=== PATIENT | female | born 1955 | race Caucasian/White ===

== ENCOUNTER → 2018-09-22 10:23 | Outpatient (CLI) | payer OTHER, SELFPAY ==
--- NOTE | 2018-09-22 10:25 | DI.MG.S_ITS ---
BILATERAL DIGITAL SCREENING MAMMOGRAM 3D/2D WITH CAD: 09/22/2018 CLINICAL: Routine screening. Comparison is made to exams dated: 06/02/2017 mammogram, 01/20/2016 mammogram, and 08/13/2014 mammogram - [facility]. There are scattered fibroglandular elements in both breasts. Current study was also evaluated with a Computer Aided Detection (CAD) system. No significant masses, calcifications, or other findings are seen in either breast. There has been no significant interval change. IMPRESSION: NEGATIVE There is no mammographic evidence of malignancy. A 1 year screening mammogram is recommended. This exam was interpreted at Station ID: [id number]. NOTE: For mammograms, a report in lay terms will be sent to the patient. Approximately 15% of breast malignancies will not be visualized mammographically. In the management of a palpable breast mass, a negative mammogram must not discourage biopsy of a clinically suspicious lesion. Electronically Signed By: Enid johnson/cele:09/22/2018 11:14:52 letter sent: Normal Exam ACR BI-RADS Category 1: Negative 3341F
== END ==
PROVIDERS: PCP Family Medicine; Visit Provider Family Medicine
DX: Z12.31 Encounter for screening mammogram for malignant neoplasm of breast (principal)
CPT/HCPCS: 77063; 77067

== ENCOUNTER → 2018-11-14 13:11 | Outpatient (CLI) | payer OTHER, SELFPAY | PROVIDERS: PCP Family Medicine; Visit Provider Internal Medicine Endocrinology, Diabetes & Metabolism | DX: M81.0 Age-related osteoporosis without current pathological fracture (principal); Z78.0 Asymptomatic menopausal state; E21.3 Hyperparathyroidism, unspecified; Z87.891 Personal history of nicotine dependence | CPT/HCPCS: 77080; 77081 ==

== ENCOUNTER → 2019-09-20 07:22 | Outpatient (CLI) | payer OTHER, SELFPAY ==
[2019-09-20 09:16] LABS: Cholesterol 208 mg/dL (140-199); Glucose 94 mg/dL (80-110); HDL Cholesterol 82 mg/dL (40-60); LDL Cholesterol Calculated 116 mg/dL (<100); Triglycerides 50 mg/dL (35-150)
== END ==
PROVIDERS: PCP Family Medicine; Visit Provider Family Medicine
DX: Z13.1 Encounter for screening for diabetes mellitus (principal); Z13.220 Encounter for screening for lipoid disorders
CPT/HCPCS: 36415; 80061; 82947

== ENCOUNTER 2019-10-08 11:03 | Day surgery (SDC) | payer OTHER, SELFPAY ==
[2019-10-08 11:50] VITALS: BP 130/81; PULSE 63; RESP 15; TEMP 36.3; O2SAT 100
[2019-10-08] MEDS: PROPARACAINE 0.5% OPHTH SOL 2 DROPS EYE-OP (12:05)
[2019-10-08] MEDS: CATARACT EYE COMPOUND (10 DROPS/SYRINGE) 3 DROPS EYE-OP (12:05)
--- NOTE | 2019-10-08 12:13 | PM.PREOP ---
Pre-operative Note Interval Note History & Physical reviewed/Exam performed by Physician: No Changes to H&P: No
--- NOTE | 2019-10-08 12:13 | PM.OP.1 ---
Operative Date/Time/Diagnoses Pre-op diagnosis: Nuclear Cataract Left eye Post-op diagnosis: same Procedure & Clinicians Surgeon: Mac Rudd Anesthesia Type: MAC +/- and Sedation Operative Notes Procedure in detail: Patient brought to the operating suite. Tetracaine drops placed in the left eye. Patient was prepped and draped in sterile manner. Wire lid speculum was placed in the eye. Betadine drops were placed on the eye. This was irrigated. Lidocaine jelly was placed on the eye. A paracentesis port was created with a side-port blade. 0.1 mL 1% preservative free lidocaine was injected into the anterior chamber. The anterior chamber was deepened with viscoelastic. 2.6 mm keratome was used to create a temporal clear corneal incision. Cystotome and Utrata forceps were used to create continuous tear capsulorrhexis. Balanced salt solution was used to hydro dissect the nucleus. The phacoemulsification handpiece was inserted and the nucleus was removed using the stop and chop technique. The irrigation aspiration handpiece was inserted and the remaining cortex was removed. Anterior chamber was deepened with viscoelastic. An Johnson ZCB00 intraocular lens with a power of 12.5 was injected into the capsular bag. Irrigation aspiration handpiece was inserted and the remaining viscoelastic was removed. Incision was hydrated with balanced salt solution and found to be leak free with pressure with Weck-Traci sponges. 0.1 mL Vigamox injected anterior chamber. 0.3 mL Kenalog 10 mg was injected subconjunctivally. Lid speculum was removed. The patient left the operating room in excellent condition. Complications: none Post-operative Condition: stable Disposition: same day surgery
[2019-10-08] MEDS: PHENYLEPHRINE/LIDOCAINE VIAL (OR) 0.2 ML EYE-OP (12:29)
[2019-10-08] MEDS: MOXIFLOXACIN INJ 5 MG/ML VIAL EYE-OP (12:29)
[2019-10-08] MEDS: TRIAMCINOLONE 50 MG/5 ML VIAL INJ (12:29)
[2019-10-08] MEDS: CHONDROIDTIN/SOD HYALURONATE 1.05 ML SYRINGE INTRAOCULA (12:29)
[2019-10-08] MEDS: BALANCED SALT IRRIG SOLN NO.2 500 ML, EPINEPHrine 1 MG IRR (12:30)
[2019-10-08] MEDS: LIDOCAINE JELLY 2% 5 ML 1 APPLIC TOP (12:30)
[2019-10-08] MEDS: TETRACAINE 0.5% OPHTH DROPS 4 ML 2 DROPS EYE-OP (12:30)
[2019-10-08 12:45] VITALS: BP 140/74; PULSE 64; RESP 15; TEMP 36.4; O2SAT 98
== END 2019-10-08 13:00 | disposition home or self-care (01) ==
PROVIDERS: Family Provider Family Medicine; PCP Family Medicine; Visit Provider Ophthalmology
PROC: (CPT 66984; principal; 2019-10-08 12:45)
DX: H25.12 Age-related nuclear cataract, left eye (principal)
CPT/HCPCS: 66984; J0171; J2250; J3301

== ENCOUNTER 2019-10-22 08:02 | Day surgery (SDC) | payer OTHER, SELFPAY ==
[2019-10-22 08:49] VITALS: BP 137/84; PULSE 86; RESP 15; TEMP 36.2; O2SAT 100; BMI 19.0
[2019-10-22] MEDS: PROPARACAINE 0.5% OPHTH SOL 2 DROPS EYE-OP (08:59)
[2019-10-22] MEDS: CATARACT EYE COMPOUND (10 DROPS/SYRINGE) 3 DROPS EYE-OP (09:00)
--- NOTE | 2019-10-22 09:23 | PM.PREOP ---
Pre-operative Note Interval Note History & Physical reviewed/Exam performed by Physician: No Changes to H&P: No
--- NOTE | 2019-10-22 09:23 | PM.OP.1 ---
Operative Date/Time/Diagnoses Pre-op diagnosis: Nuclear cataract right eye Procedure & Clinicians Procedure: Cataract Surgery Same procedure as scheduled: Yes Surgeon: Mac Rudd Anesthesia Type: MAC +/- and Sedation Operative Notes Procedure in detail: Patient brought to the operating suite. Tetracaine drops placed in the right eye. Patient was prepped and draped in sterile manner. Wire lid speculum was placed in the eye. Betadine drops were placed on the eye. This was irrigated. Lidocaine jelly was placed on the eye. A paracentesis port was created with a side-port blade. 0.1 mL 1% preservative free lidocaine was injected into the anterior chamber. The anterior chamber was deepened with viscoelastic. 2.6 mm keratome was used to create a temporal clear corneal incision. Cystotome and Utrata forceps were used to create continuous tear capsulorrhexis. Balanced salt solution was used to hydro dissect the nucleus. The phacoemulsification handpiece was inserted and the nucleus was removed using the stop and chop technique. The irrigation aspiration handpiece was inserted and the remaining cortex was removed. Anterior chamber was deepened with viscoelastic. An Johnson ZCB00 intraocular lens with a power of 14.0 was injected into the capsular bag. Irrigation aspiration handpiece was inserted and the remaining viscoelastic was removed. Incision was hydrated with balanced salt solution and found to be leak free with pressure with Weck-Traci sponges. 0.1 mL Vigamox injected anterior chamber. 0.3 mL Kenalog 10 mg was injected subconjunctivally. Lid speculum was removed. The patient left the operating room in excellent condition. Complications: none Post-operative Condition: stable Disposition: same day surgery
[2019-10-22] MEDS: MOXIFLOXACIN INJ 5 MG/ML VIAL EYE-OP (09:34)
[2019-10-22] MEDS: TRIAMCINOLONE 50 MG/5 ML VIAL INJ (09:35)
[2019-10-22] MEDS: BALANCED SALT IRRIG SOLN NO.2 500 ML, EPINEPHrine 1 MG IRR (09:35)
[2019-10-22] MEDS: LIDOCAINE JELLY 2% 5 ML 1 APPLIC TOP (09:35)
[2019-10-22] MEDS: PHENYLEPHRINE/LIDOCAINE VIAL (OR) 0.2 ML EYE-OP (09:35)
[2019-10-22] MEDS: TETRACAINE 0.5% OPHTH DROPS 4 ML 2 DROPS EYE-OP (09:36)
[2019-10-22] MEDS: CHONDROIDTIN/SOD HYALURONATE 1.05 ML SYRINGE INTRAOCULA (09:36)
[2019-10-22 09:54] VITALS: BP 131/73; PULSE 70; RESP 16; TEMP 36.9; O2SAT 97
== END 2019-10-22 09:55 | disposition home or self-care (01) ==
PROVIDERS: PCP Family Medicine; Visit Provider Ophthalmology
PROC: (CPT 66984; principal; 2019-10-22 09:45)
DX: H25.11 Age-related nuclear cataract, right eye (principal)
CPT/HCPCS: 66984; J0171; J2250; J3010; J3301

== ENCOUNTER → 2020-02-14 14:19 | Outpatient (CLI) | payer OTHER, SELFPAY ==
[2020-02-15 08:39] LABS: Calcium 8.9 mg/dL (8.7-10.3); Parathyroid Hormone, Intact 30 pg/mL (15-65)
== END ==
PROVIDERS: PCP Family Medicine; Referring Provider Internal Medicine Endocrinology, Diabetes & Metabolism; Visit Provider Internal Medicine Endocrinology, Diabetes & Metabolism
DX: E21.3 Hyperparathyroidism, unspecified (principal)
CPT/HCPCS: 36415; 82310; 83970

== ENCOUNTER → 2020-04-17 15:04 | Outpatient (CLI) | payer OTHER, SELFPAY | PROVIDERS: PCP Family Medicine; Referring Provider Internal Medicine Endocrinology, Diabetes & Metabolism; Visit Provider Internal Medicine Endocrinology, Diabetes & Metabolism | DX: M81.0 Age-related osteoporosis without current pathological fracture (principal); Z78.0 Asymptomatic menopausal state; E21.3 Hyperparathyroidism, unspecified; Z87.891 Personal history of nicotine dependence | CPT/HCPCS: 77080 ==

== ENCOUNTER → 2020-08-04 15:05 | Outpatient (CLI) | payer OTHER, SELFPAY ==
--- NOTE | 2020-08-04 | DI.MG.S_ITS ---
BILATERAL DIGITAL SCREENING MAMMOGRAM 3D/2D WITH CAD: 08/04/2020 CLINICAL: Routine screening. Comparison is made to exams dated: 09/22/2018 mammogram, 06/02/2017 mammogram, and 01/20/2016 mammogram - [facility]. There are scattered fibroglandular elements in both breasts. Current study was also evaluated with a Computer Aided Detection (CAD) system. No significant masses, calcifications, or other findings are seen in either breast. There has been no significant interval change. IMPRESSION: NEGATIVE There is no mammographic evidence of malignancy. A 1 year screening mammogram is recommended. This exam was interpreted at Station ID: [id number]. NOTE: For mammograms, a report in lay terms will be sent to the patient. Approximately 15% of breast malignancies will not be visualized mammographically. In the management of a palpable breast mass, a negative mammogram must not discourage biopsy of a clinically suspicious lesion. Electronically Signed By: Doug pagan/cele:08/04/2020 17:11:27 letter sent: Normal Exam ACR BI-RADS Category 1: Negative 3341F
== END ==
PROVIDERS: PCP Family Medicine; Referring Provider Family Medicine; Visit Provider Family Medicine
DX: Z12.31 Encounter for screening mammogram for malignant neoplasm of breast (principal)
CPT/HCPCS: 77063; 77067

== ENCOUNTER 2020-08-11 15:33 | Emergency (ER) | payer OTHER, SELFPAY ==
--- NOTE | 2020-08-11 15:41 | DI.CT.S_ITS ---
PROCEDURE: CT ANGIO HEAD AND NECK INDICATIONS: Sent by Retina specialist for eval of possible dissection TECHNIQUE: Pre-contrast 4.5 mm thick sections acquired from the foramen magnum to the vertex. After the administration of intravenous contrast, 1 mm thick sections acquired from the aortic arch through the [place] of Angulo. Post-contrast 4.5 mm thick sections then re-acquired from the foramen magnum to the vertex. 3-dimensional qjcdbdq-ljwpfjnnw-cqdlnexfqt (MIP) and/or volume rendering reformats were acquired of the central intracranial vasculature and neck separately. COMPARISON: None. FINDINGS: Image quality: Excellent. BRAIN: The ventricular system and cortical sulci demonstrate atrophy, consistent for the patient's stated age. There are areas of hypodensity within the periventricular and subcortical white matter. There is no acute intra-or extra axial fluid collection. No acute hemorrhage, mass lesion or midline shift. Brainstem is unremarkable. The left globe is hyperdense on both pre and post contrast images. Areas of hyperdensity are noted along the sclera. Sinuses are aerated. Osseous structures are intact. HEAD CT ANGIOGRAPHY: Anterior circulation: Intracranial internal carotid arteries are normal in size and flow. The flow within the paired anterior cerebral arteries is normal and symmetric. The flow within the middle cerebral arteries is normal and symmetric. The anterior communicating artery is seen. No aneurysms are seen. Posterior circulation: Visualized portions of the vertebral arteries demonstrate normal caliber, and join to form a normal appearing basilar artery. Flow within the posterior cerebral arteries is normal and symmetric. No aneurysms are seen. NECK CT ANGIOGRAPHY: The origins of the left and right common, internal and external carotid arteries demonstrate no areas of hemodynamically significant stenosis, vascular occlusion or aneurysmal dilation. Origins of the left and right vertebral arteries demonstrate no areas of hemodynamically significant stenosis, vascular occlusion or aneurysmal dilation. Aortic arch demonstrates conventional anatomy. Limited, visualized portions of the subclavian vasculature are unremarkable. Scattered foci of low attenuation are present within the thyroid gland. IMPRESSION: 1. No acute intracranial process. 2. Mild chronic microvascular ischemic changes. 3. No areas of hemodynamically significant stenosis, vascular occlusion or aneurysmal dilation within the anterior or posterior circulation. 4. No areas of hemodynamically significant stenosis, vascular occlusion or aneurysmal dilation within the neck vasculature. 5. Hyperdensity within the left globe as well as areas of the sclera. Appearance is most suggestive of previous injection such as silicone with scleral banding, possibly secondary to retinal detachment. Clinical correlation is recommended. Any quantitative measurements of stenosis were performed using NASCET criteria. Dictated by: Shanika Pandya M.D. on 08/11/2020 at 17:09 Approved by: Shanika Pandya M.D. on 08/11/2020 at 17:28
[2020-08-11 15:45] VITALS: BP 159/82; PULSE 92; RESP 14; TEMP 36.4; O2SAT 97; BMI 19.2
--- NOTE | 2020-08-11 15:47 | ED.GENADULT ---
HPI - General Adult General Chief complaint: Eye Problems Stated complaint: eye issues, sent by MD Time Seen by Provider: 08/11/20 15:40 Source: patient Mode of arrival: Ambulatory Limitations: no limitations History of Present Illness HPI narrative: Patient is a 65-year-old female. For the past year has had multiple issues with her left eye to include multiple retinal detachments. She sees Dr. Arevalo who is a retinal specialist in [place]. I received a call from Dr. Arevalo today stating that he was sending the patient to the emergency department in order to have vascular studies of her head and neck. She had a scheduled appointment with him today as a follow-up for her left eye issues. Dr. Arevalo informed me that today the patient told him that over the past several weeks she has had problems with vision in that left eye especially when she flexes or extends her head to the point where she was losing vision in that eye. He stated that his eye exam was concerning for ischemic issues with the left eye. He states that he was treating her for these issues. She received an injection in her eye. She has a follow-up with already scheduled. He had asked that she come to the emergency department for the vascular studies and if they were normal that she could be discharged home with follow-up with him if there were any abnormal findings to be dispositioned appropriately. Related Data Home Medications Medication Instructions Recorded Confirmed [CALCIUM] 1,000 mg PO TID #0 06/13/12 10/22/19 [VITAMIN D] 2,000 unit PO Q DAY #0 06/13/12 10/22/19 clonazepam [Klonopin] 0.5 mg PO PRN PRN 10/08/19 10/22/19 Allergies Allergy/AdvReac Type Severity Reaction Status Date / Time No Known Drug Allergies Allergy Verified 08/11/20 15:45 Review of Systems Constitutional Constitutional: Denies fever(s) and Denies headache(s) Eyes Comments: Loss in vision in left eye with flex and extension ENT Ears, Nose, Mouth, and Throat: Denies headache(s), Denies neck pain, Denies sinus pain and Denies sore throat Musculoskeletal Musculoskeletal: Denies arthralgias, Denies myalgias and Denies neck pain Integumentary/Breasts Skin/Breast: Denies rash Neurologic Neurologic: Denies behavioral changes and Denies headache(s) Psychiatric Psychiatric: Denies behavioral changes Hematologic/Lymphatic Hematologic/Lymphatic: Denies easy bleeding and Denies easy bruising Allergic/Immunologic Allergic/Immunologic: Denies urticaria Patient History Medical History Chicken pox (Resolved 1956) Diverticular disease (Chronic) Hepatitis (Resolved 2002) Humerus fracture (Resolved 08/10/15) Hypercalcemia (Resolved) Hyperparathyroidism (Resolved) Insomnia (Chronic) Osteoporosis (Chronic) Restless leg syndrome (Chronic 06/25/15) Xerotic eczema (Chronic) Surgical History Anesthesia (Resolved) History of open reduction and internal fixation (ORIF) procedure (Resolved 08/10/15) Status post breast biopsy (Resolved) Status post cone biopsy of cervix (Resolved 1990) Status post dilation and curettage (Resolved) Status post parathyroidectomy (Resolved 07/2015) Family History Father Stroke Prostate cancer Grandmother Lymphoma Mother Cancer Social History marital status: number of children: 3 household members: none lives independently: Yes caregiver/support person: No housing: house education level: college occupational status: previously employed and other (Retired) other: walking,gardening seatbelt use: always helmet use: Yes water heater temp set < 120 deg: Yes working smoke detector in home: Yes fire extinguisher in home: Yes carbon monox detector in home: No firearms in home: No Smoking Status: Former smoker Tobacco: How many years used: 10 (1 pack daily x 10 years = 10 PYHx) second hand exposure: No alcohol intake: never substance use type: does not use during the past year weight has: remained stable daily servings fruits/ve-4 caffeine: Yes Type(s) of exercise: walking frequency: 5-6 times per week duration: 45-60 minutes/day Smoking Status: Former smoker Exam Initial Vital Signs Initial Vital Signs: Vital Signs Temperature 97.6 F 08/11/20 15:45 Pulse Rate 92 H 08/11/20 15:45 Respiratory Rate 14 08/11/20 15:45 Blood Pressure 159/82 H 08/11/20 15:45 Pulse Oximetry 97 08/11/20 15:45 Const General: cooperative and comfortable Limitations: mental status not altered HENMT Head: normal to inspection and normocephalic Eyes General: appearance normal, both eyes and all related structures Resp Effort & Inspection: normal respiratory effort Cardio Rate: regular rate Skin Lesions: no lesions Rashes: no rashes Neuro General: patient alert and patient awake Cognition: normal cognition Speech: speech normal Extrem General: normal to inspection Psych Appearance: grossly normal and well kempt Scores GCS Ward coma scale eye opening: Spontaneous Ward coma scale verbal response: Orientated [place] coma scale motor response: [place]bey commands Ward coma scale total score: 15 Course Orders Ordered: ED Orders 08/11/20 15:41 CT angio head and neck Stat 08/11/20 16:10 Basic Metabolic Panel Stat Complete Blood Count AUTO DIFF Stat Discontinued Medications Sodium Chloride (Normal Saline 0.9%) 1,000 mls @ 1,000 mls/hr IV BOLUS ONE Stop: 08/11/20 16:39 Last Infusion: 08/11/20 18:04 Dose: 0 mls/hr Documented by: Admin: 08/11/20 16:26 Dose: 1,000 mls/hr Documented by: DENISE Vital Signs Vital signs: Vital Signs - 8 hr 08/11/20 15:45 08/11/20 18:19 Temperature 97.6 F Pulse Rate 92 H 59 L Respiratory Rate 14 12 Blood Pressure 159/82 H 121/71 Pulse Oximetry 97 100 Medical Decision Making Lab Data Lab results reviewed: Yes I reviewed the patient's lab results. Result diagrams: 08/11/20 16:10 08/11/20 16:10 Labs: Lab Results 08/11/20 08/11/20 Range/Units 16:10 16:10 WBC 5.2 (4.5-11.0) X10^3/uL RBC 4.44 (4.0-5.2) X10^6/uL Hgb 13.3 (12.0-16.0) g/dL Hct 39.1 (36-46) % MCV 88.1 (80-100) fL MCH 30.0 (26-34) PG MCHC 34.0 (30-36) % RDW 13.2 (11.6-14.8) % Plt Count 264 (150-400) X10^3/uL Neut % (Auto) 71.0 (50-75) % Lymph % (Auto) 22.0 L (25-40) % [place] % (Auto) 5.7 (3-14) % Eos % (Auto) 0.6 L (2-4) % Baso % (Auto) 0.7 (0-2) % Neut # (Auto) 3700 (1152-9827) /uL Lymph # (Auto) 1100 (4285-6007) /uL [place] # (Auto) 300 (0-900) /uL Eos # (Auto) 0 (0-450) /uL Baso # (Auto) 0 (0-100) /uL Sodium 139 (137-145) mmol/L Potassium 3.6 (3.4-5.1) mmol/L Chloride 102 (98-107) mmol/L Carbon Dioxide 31 (22-32) mmol/L BUN 13 (7-17) mg/dL Creatinine 0.71 (0.52-1.04) mg/dL Estimated GFR > 60.0 (>60) mL/min BUN/Creatinine Ratio 18.3 (6-22) Glucose 98 (80-110) mg/dL Calcium 8.9 (8.4-10.2) mg/dL Imaging Data CTA - brain/neck: Radiologist's Impression: [place] [address] CT Scan Report Signed Patient: Hilda Cheney EMR#: [id number] : 3Acct:[id number] Age/Sex: 65 / FDate of Service: 08/11/20 Loc: ED Accession Number: [id number] Procedure: CT angio head and neck Ordering Provider: Chris Beckman D.O. PROCEDURE: CT ANGIO HEAD AND NECK INDICATIONS: Sent by Retina specialist for eval of possible dissection TECHNIQUE: Pre-contrast 4.5 mm thick sections acquired from the foramen magnum to the vertex. After the administration of intravenous contrast, 1 mm thick sections acquired from the aortic arch through the [place] of Angulo. Post-contrast 4.5 mm thick sections then re-acquired from the foramen magnum to the vertex. 3-dimensional vpjywwl-nkupwljcz-rskligzups (MIP) and/or volume rendering reformats were acquired of the central intracranial vasculature and neck separately. COMPARISON: None. FINDINGS: Image quality: Excellent. BRAIN: The ventricular system and cortical sulci demonstrate atrophy, consistent for the patient's stated age. There are areas of hypodensity within the periventricular and subcortical white matter. There is no acute intra-or extra axial fluid collection. No acute hemorrhage, mass lesion or midline shift. Brainstem is unremarkable. The left globe is hyperdense on both pre and post contrast images. Areas of hyperdensity are noted along the sclera. Sinuses are aerated. Osseous structures are intact. HEAD CT ANGIOGRAPHY: Anterior circulation: Intracranial internal carotid arteries are normal in size and flow. The flow within the paired anterior cerebral arteries is normal and symmetric. The flow within the middle cerebral arteries is normal and symmetric. The anterior communicating artery is seen. No aneurysms are seen. Posterior circulation: Visualized portions of the vertebral arteries demonstrate normal caliber, and join to form a normal appearing basilar artery. Flow within the posterior cerebral arteries is normal and symmetric. No aneurysms are seen. NECK CT ANGIOGRAPHY: The origins of the left and right common, internal and external carotid arteries demonstrate no areas of hemodynamically significant stenosis, vascular occlusion or aneurysmal dilation. Origins of the left and right vertebral arteries demonstrate no areas of hemodynamically significant stenosis, vascular occlusion or aneurysmal dilation. Aortic arch demonstrates conventional anatomy. Limited, visualized portions of the subclavian vasculature are unremarkable. Scattered foci of low attenuation are present within the thyroid gland. IMPRESSION: 1. No acute intracranial process. 2. Mild chronic microvascular ischemic changes. 3. No areas of hemodynamically significant stenosis, vascular occlusion or aneurysmal dilation within the anterior or posterior circulation. 4. No areas of hemodynamically significant stenosis, vascular occlusion or aneurysmal dilation within the neck vasculature. 5. Hyperdensity within the left globe as well as areas of the sclera. Appearance is most suggestive of previous injection such as silicone with scleral banding, possibly secondary to retinal detachment. Clinical correlation is recommended. Any quantitative measurements of stenosis were performed using NASCET criteria. Dictated by: Shanika Pandya M.D. on 08/11/2020 at 17:09 Approved by: Shanika Pandya M.D. on 08/11/2020 at 17:28 MDM Narrative Medical decision making narrative: Patient was sent to the Emergency Department on the recommendation from her retina specialist for a CTA of the head neck. This is performed. Showed no acute pathology. Dr. Arevalo who was her redness specialist stated that he was treating the other findings of her left eye. She has a follow-up with him next week. She reports no new symptoms. She was instructed to keep this appointment and to return for any new or worsening symptoms. She expressed understanding and agreement. Discharge Plan Departure Patient Disposition: Home Clinical Impression: Vision disturbance Activity Restrictions/Additional Instructions: Keep all of your scheduled medical appointments. Return to the emergency department for any new or worsening symptoms Prescriptions: No Action [CALCIUM] 1,000 mg PO TID Qty: 0 RF: 0 [VITAMIN D] 2,000 unit PO Q DAY Qty: 0 RF: 0 clonazepam [Klonopin] 1 mg tablet 0.5 mg PO PRN PRN (Reason: Sleep) RF: 0 Referrals: Suzi Love MD [Primary Care Provider] -
[2020-08-11 16:26] LABS: Add Manual Diff / Slide Review NO; Basophils Absolute Auto 0 /uL (0-100); Basophils Percent Auto 0.7 % (0-2); Eosinophils Absolute Auto 0 /uL (0-450); Eosinophils Percent Auto 0.6 % (2-4); Hematocrit 39.1 % (36-46); Hemoglobin 13.3 g/dL (12.0-16.0); Lymphocytes Absolute Auto 1100 /uL (1100-4500); Mean Corpuscular Volume 88.1 fL (80-100); Monocytes Absolute Auto 300 /uL (0-900); Monocytes Percent Auto 5.7 % (3-14); Neutrophils Absolute Auto 3700 /uL (1500-7000); Platelet Count 264 X10^3/uL (150-400); Red Blood Cell Count 4.44 X10^6/uL (4.0-5.2); Red Cell Distribution Width 13.2 % (11.6-14.8); White Blood Cell Count 5.2 X10^3/uL (4.5-11.0)
[2020-08-11] MEDS: SODIUM CHLORIDE 0.9% 1,000 ML 1000 ML IV (16:26)
[2020-08-11 16:31] LABS: BUN Creatinine Ratio 18.3 (6-22); Blood Urea Nitrogen 13 mg/dL (7-17); Calcium 8.9 mg/dL (8.4-10.2); Carbon Dioxide 31 mmol/L (22-32); Chloride 102 mmol/L (98-107); Estimated Glomerular Filt Rate > 60.0 mL/min (>60); Glucose 98 mg/dL (80-110); HEMOLYSIS 45 (0-50); Potassium 3.6 mmol/L (3.4-5.1); Sodium 139 mmol/L (137-145)
[2020-08-11 18:19] VITALS: BP 121/71; PULSE 59; RESP 12; O2SAT 100
== END 2020-08-11 18:23 | disposition home or self-care (01) ==
PROVIDERS: Emergency Provider Emergency Medicine; PCP Family Medicine
DX: H53.9 Unspecified visual disturbance (principal)
CPT/HCPCS: 70496; 70498; 80048; 85025; 96360; 96361; 99283; 99284; Q9967

== ENCOUNTER → 2020-08-25 11:20 | Outpatient (ROUT) | payer OTHER, SELFPAY ==
[2020-08-26 02:08] LABS: COVID19 Sendout Not Detected (Not Detect)
== END ==
PROVIDERS: PCP Family Medicine; Visit Provider Nurse Practitioner
DX: Z11.59 Encounter for screening for other viral diseases (principal)
CPT/HCPCS: 87635

== ENCOUNTER → 2020-10-07 13:46 | Outpatient (CLI) | payer OTHER, SELFPAY | PROVIDERS: PCP Family Medicine; Visit Provider Family Medicine | DX: R82.90 Unspecified abnormal findings in urine (principal) | CPT/HCPCS: 87077; 87086; 87186 ==

== ENCOUNTER → 2021-05-14 09:51 | Outpatient (CLI) | payer MEDICARE, SELFPAY ==
--- NOTE | 2021-05-14 09:53 | DI.RAD.S_ITS ---
PROCEDURE: XR SCAPULA RT INDICATIONS: right scapula pain TECHNIQUE: 2 views of the scapula were acquired. COMPARISON: None. FINDINGS: Bones: No fractures or dislocations. No suspicious bony lesions. Visualized ribs appear intact. The right scapula is normal. Soft tissues: Overlying soft tissues appear normal. IMPRESSION: Normal right scapula. Dictated by: Payam Sanchez M.D. on 05/14/2021 at 13:20 Approved by: Payam Sanchez M.D. on 05/14/2021 at 13:22
--- NOTE | 2021-05-14 09:53 | DI.RAD.S_ITS ---
PROCEDURE: XR SHOULDER RT MIN 2V INDICATIONS: right shoulder pain TECHNIQUE: Three views of the shoulder were acquired. COMPARISON: [facility], , SHOULDER MINIMUM 2 VIEW LEFT, 08/18/2015, 14:41. FINDINGS: Bones: No fractures or dislocations. No suspicious bony lesions. Mild AC joint space loss. Visualized ribs appear intact. Soft tissues: No suspicious soft tissue calcifications. IMPRESSION: 1. Intact right shoulder with mild degenerative change at the right AC joint. Dictated by: Kimberlyn Lambert M.D. on 05/14/2021 at 10:33 Approved by: Kimberlyn Lambert M.D. on 05/14/2021 at 10:34
== END ==
PROVIDERS: PCP Family Medicine; Referring Provider Physician Assistant; Visit Provider Physician Assistant
DX: M25.511 Pain in right shoulder (principal); M89.8X1 Other specified disorders of bone, shoulder
CPT/HCPCS: 73010; 73030

== ENCOUNTER → 2021-05-24 16:01 | Outpatient (CLI) | payer MEDICARE, SELFPAY ==
--- NOTE | 2021-05-24 16:03 | DI.MRI.S_ITS ---
PROCEDURE: MR SHOULDER RT WO CON INDICATIONS: right rotaor cuff tear TECHNIQUE: Noncontrast oblique coronal T2 fast spin echo with fat saturation, oblique sagittal T1 spin echo and T2 fast spin echo with fat saturation, axial T1 spin echo and T2 fast spin echo with fat saturation through the shoulder. COMPARISON: [facility], CR, XR SHOULDER RT MIN 2V, 05/14/2021, 9:52. FINDINGS: Image quality: Excellent. Rotator cuff: There is mild supraspinatus and infraspinatus tendinosis. The teres minor and subscapularis tendons are intact. No disproportionate rotator cuff muscle atrophy is seen. Mild edema is seen in the medial aspect of the posterior infraspinatus muscle and the teres minor muscle best seen on coronal images, compatible with low-grade muscle strains. Bones and bursae: No acute trabecular bone injury. Chronic traction cystic changes are seen at the posterosuperior humeral head and lesser tuberosity near the rotator cuff tendon insertions. Mild to moderate degenerative changes are seen in the acromioclavicular joint. No significant subacromial/subdeltoid bursal fluid. No significant joint effusion. Capsule and soft tissues: Sublabral fluid at the superior labrum with smooth margins is favored to represent a sublabral sulcus rather than a labral tear. There is mild tendinosis of the intra-articular biceps long head tendon. Partial effacement of the normal fat signal is seen in the rotator interval. The inferior glenohumeral ligament is normal in thickness. IMPRESSION: 1. Low-grade strains of the medial infraspinatus and teres minor muscles. 2. Mild supraspinatus and infraspinatus tendinosis. No significant rotator cuff tendon tear is seen. 3. Mild tendinosis of the biceps long head tendon. 4. Mild to moderate acromioclavicular joint osteoarthrosis. Dictated by: Doug Cole M.D. on 05/24/2021 at 16:18 Approved by: Doug Cole M.D. on 05/24/2021 at 16:30
== END ==
PROVIDERS: PCP Family Medicine; Referring Provider Family Medicine; Visit Provider Family Medicine
DX: M25.511 Pain in right shoulder (principal); S46.811A Strain of other muscles, fascia and tendons at shoulder and upper arm level, right arm, initial encounter; M19.011 Primary osteoarthritis, right shoulder
CPT/HCPCS: 73221

== ENCOUNTER 2021-07-01 09:00 | Outpatient (RCR) | payer MEDICARE, SELFPAY ==
--- NOTE | 2021-06-21 12:59 | PT.OIE ---
Current Diagnoses Pain in right shoulder (06/21/21) Past Medical History (Last Updated 10/07/20 @ 13:55 by Suzi Love MD) Chicken pox (1957) Diverticular disease Hepatitis (2002) History of open reduction and internal fixation (ORIF) procedure (08/10/15) Humerus fracture (08/10/15) Hypercalcemia Hyperparathyroidism Insomnia Osteoporosis Restless leg syndrome (06/25/15) Xerotic eczema Past Surgical History (Last Reviewed 08/31/18 @ 15:50 by Suzi Love MD) Anesthesia History of open reduction and internal fixation (ORIF) procedure (08/10/15) Status post breast biopsy Status post cone biopsy of cervix (1990) Status post dilation and curettage Status post parathyroidectomy (07/2015) Visit Care Team Role Provider Type Suzi Love MD Primary Care Provider Physician Specialty: Family Practice Address: [address] [place] [address], [id number] Email: [email or web address] Rosalinda Cifuentes PA-C Attending Provider Advanced Insurance Processor Referring Provider Specialty: [facility] Address: [address] [place] [address], [id number] Email: [email or web address] Physical Therapy Initial Evaluation PT-OP-A Visit Information Start: 06/21/21 12:36 Freq: Status: Active Protocol: Document 06/21/21 12:36 HH (Rec: 06/21/21 12:59 [email or web address]) Out-Patient Physical Therapy Visit Information Visit Information Visit Type Initial Evaluation Visit Start Time 09:00 Visit Stop Time 09:45 Total Visit Minutes 45 Visit Number 1/ Number of POT ROOM SUPERVISOR Visits 0 Evaluation Information Evaluation Date 06/21/21 Precautions Precautions osteoporosis PT-OP-B Current Condition Start: 06/21/21 12:36 Freq: Status: Active Protocol: Document 06/21/21 12:36 HH (Rec: 06/21/21 12:59 [email or web address]) Current Condition History of Current Condition Onset Date 05/14/21 Current Complaints R shoulder pain after GLF History of Current Condition Hilda is a 65yo female here for her R shoulder pain after a GLF on 05/14/21. Pt stated she lost her balance and fell backward who landed on her R scapular. Pt initially had significant pain and difficulty reaching overhead and abducting her R arm. However, her ROM has improved and only has superiorlateral shoulder pain with end range flexion and abduction. 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 She stated she has difficulty with depth perception. Prior Treatments and Tests R scap xray Bones: No fractures or dislocations. No suspicious bony lesions. Visualized ribs appear intact. The right scapula is normal. R shoulder MRI 1. Low-grade strains of the medial infraspinatus and teres minor muscles. 2. Mild supraspinatus and infraspinatus tendinosis. No significant rotator cuff tendon tear is seen. 3. Mild tendinosis of the biceps long head tendon. 4. Mild to moderate acromioclavicular joint osteoarthrosis. R shoulder X-ray IMPRESSION: 1. Intact right shoulder with mild degenerative change at the right AC joint. PT-OP-C Subjective Start: 06/21/21 12:36 Freq: Status: Active Protocol: Document 06/21/21 12:36 HH (Rec: 06/21/21 12:59 [email or web address]) Patient Questionnaires Quick Dash- Upper Extremity Quick Dash UE Score 15.91 Quick Dash UE Impairment 1 to 19% Impaired (Score 1-19) OP-PT Pain Assessment Location R shoulder Pain Location Details superior deltoid region Intensity 1 Scale Used Numeric (0 - 10) Description Aching Pain Aggravating Factors Activity,Exercise,Lifting Pain Alleviating Factors Inactivity PT-OP-F Manual Assessment Start: 06/21/21 12:36 Freq: Status: Active Protocol: Document 06/21/21 12:36 HH (Rec: 06/21/21 12:59 [email or web address]) Manual Assessments Soft Tissue Assessment Soft Tissue Mobility Assessment significant pain to pressure at infraspinatus> teres minor > supraspinatus PT-OP-J Posture/Palpation/Skin Start: 06/21/21 12:36 Freq: Status: Active Protocol: Document 06/21/21 12:36 HH (Rec: 06/21/21 12:59 [email or web address]) Posture Evaluation Position Standing Evaluation View Posterior Shoulder Posture (R) Rounded Scapula Posture (R) Winged PT-OP-K Range of Motion Start: 06/21/21 12:36 Freq: Status: Active Protocol: Document 06/21/21 12:36 HH (Rec: 06/21/21 12:59 [email or web address]) Shoulder Goniometric Range of Motion Shoulder Right Active Shoulder ROM WFL Yes Testing Position Standing Flexion 158 Extension 70 Abduction 164 External Rotation at 90 degrees 90 Abduction Internal Rotation 90 Comments pain with end range flexion and abduction PT-OP-L Special Tests Start: 06/21/21 12:36 Freq: Status: Active Protocol: Document 06/21/21 12:36 HH (Rec: 06/21/21 12:59 [email or web address]) Special Tests Shoulder Special Tests painful arc Test Results +ve Comments pain at end range abd/ flexion Empty Can Test Results +ve Comments weakness noted and pain noted Drop Arm Rotator Cuff Test Results -ve [place] Test Test Results -ve Aj Sonny Impingement Test Results -ve Neer Impingement Test Results -ve PT-OP-M Strength Start: 06/21/21 12:36 Freq: Status: Active Protocol: Document 06/21/21 12:36 HH (Rec: 06/21/21 12:59 [email or web address]) Shoulder Strength Shoulder Manual Muscle Testing Right Flexion 4 Good Extension 4+ Good+ Abduction (C5) 4- Good- External Rotation 4 Good Internal Rotation 4 Good Comments pain with resisted flexion and abduction PT-OP-Q Treatments Start: 06/21/21 12:36 Freq: Status: Active Protocol: Document 06/21/21 12:36 HH (Rec: 06/21/21 12:59 [email or web address]) Therapeutic Exercises Standing Exercises scap pinch Side bilateral Comments for HEP tennis ball release Standing Exercise Name teres minor and infraspinatus. Side right Comments for HEP, active flexion and abd Side right Reps/Minutes 10 r x 2 Comments HEP, with water bottle for strengthening if tolerable Manual Therapy Treatment Soft Tissue Mobilization RTC Body Location supraspinatus, teres minor and infraspinatus Mobilization Type Myofascial Release,Sustained Pressure,Trigger Point Release Intensity/Depth Moderate Body Position Sidelying Comments pt reports reduce pain after during flexion and abduction PT-OP-T Assessment and Plan Start: 06/21/21 12:36 Freq: Status: Active Protocol: Document 06/21/21 12:36 (Rec: 06/21/21 12:59 [email or web address]) Physical Therapy Assessment Rehab Potential Rehabilitation Potential Excellent Evaluation Complexity Number of Personal Factors/Comorbidities 0 Number of Body Systems Impaired 1-2 Clinical Presentation at Evaluation Stable Impairments Impairments Activity Tolerance,Functional Activities,Functional Mobility ,Pain,Posture,ROM,Soft Tissue Mobility,Strength Goals HEP Impairment pt does not have HEP Short Term Goal (STG) pt will comply to HEP safely and independently to regain her strength and ROM STG Duration 4 weeks pain Impairment pt has pain with overhead and pulling movement Short Term Goal (STG) pt will regain full ROM therefore she can reach overhead for cupboard without pain. STG Duration 4 weeks quickdash Impairment pt scores 15.91 on quickdash Short Term Goal (STG) pt will be able to show improved mobility and strength to be able to open a tight jar without discomfort STG Duration 4 weeks Assessment Summary Assessment Hilda is a 65 yo female here for R shoulder pain after a GLF on 05/14/21. Upon assessment , pt shows signs of RTC strain (infraspinatus > teres minor> supraspinatus). Fortunately, pt has been progressing with close to WFL ROM but pain at end range abduction and flexion. Her pain reduced after manual therapy and I also provided HEP with assisted christiano, active flexion and abduction and tennis ball release. Pt will benefit from skilled therapy to regain her full ROM and strength and I expect pt will recover within a month. Therefore, she can reach overhead and open a tight jar without difficulty. Physical Therapy Plan Frequency and Duration Frequency of Treatment Every Other Week Duration of Treatment 4 weeks Plan of Care Start Date 06/21/21 Plan of Care End Date 07/22/21 Therapeutic Interventions Therapeutic Interventions Home Exercise Program,Joint Mobilizations,Manual Therapy, Neuromuscular Re-education, Patient/Caregiver Education, Self-Care/Home Management,Soft Tissue Mobilization,Taping, Therapeutic Activities, Therapeutic Exercises Modalities Cold Pack/Ice Massage,Electric Stimulation,Hot Packs, Infrared Therapy,Ultrasound Next Visit Focus/Plan Next Note Type Treatment Note Next Visit Plan review HEP add weight gradually for shoulder ex add shoulder punch for scap wing
--- NOTE | 2021-06-21 12:59 | PT.OPPOC ---
Physical, Occupational & Speech Therapy At [facility] Current Diagnoses Pain in right shoulder (06/21/21) Visit Care Team Role Provider Type Suzi Love MD Primary Care Provider Physician Specialty: Family Practice Address: [address] [place] [address], [facility] [place], [address] Email: [email or web address] Rosalinda Cifuentes PA-C Attending Provider Advanced Durability Technician Referring Provider Specialty: [facility] Address: [address] [place] [address], [address] Email: [email or web address] Plan Of Care PT-OP-T Assessment and Plan Start: 06/21/21 12:36 Freq: Status: Active Protocol: Document 06/21/21 12:36 HH (Rec: 06/21/21 12:59 HH [email or web address]) Physical Therapy Assessment Rehab Potential Rehabilitation Potential Excellent Evaluation Complexity Number of Personal Factors/Comorbidities 0 Number of Body Systems Impaired 1-2 Clinical Presentation at Evaluation Stable Impairments Impairments Activity Tolerance,Functional Activities,Functional Mobility ,Pain,Posture,ROM,Soft Tissue Mobility,Strength Goals HEP Impairment pt does not have HEP Short Term Goal (STG) pt will comply to HEP safely and independently to regain her strength and ROM STG Duration 4 weeks pain Impairment pt has pain with overhead and pulling movement Short Term Goal (STG) pt will regain full ROM therefore she can reach overhead for cupboard without pain. STG Duration 4 weeks quickdash Impairment pt scores 15.91 on quickdash Short Term Goal (STG) pt will be able to show improved mobility and strength to be able to open a tight jar without discomfort STG Duration 4 weeks Assessment Summary Assessment Hilda is a 65 yo female here for R shoulder pain after a GLF on 05/14/21. Upon assessment , pt shows signs of RTC strain (infraspinatus > teres minor> supraspinatus). Fortunately, pt has been progressing with close to WFL ROM but pain at end range abduction and flexion. Her pain reduced after manual therapy and I also provided HEP with assisted christiano, active flexion and abduction and tennis ball release. Pt will benefit from skilled therapy to regain her full ROM and strength and I expect pt will recover within a month. Therefore, she can reach overhead and open a tight jar without difficulty. Physical Therapy Plan Frequency and Duration Frequency of Treatment Every Other Week Duration of Treatment 4 weeks Plan of Care Start Date 06/21/21 Plan of Care End Date 07/22/21 Therapeutic Interventions Therapeutic Interventions Home Exercise Program,Joint Mobilizations,Manual Therapy, Neuromuscular Re-education, Patient/Caregiver Education, Self-Care/Home Management,Soft Tissue Mobilization,Taping, Therapeutic Activities, Therapeutic Exercises Modalities Cold Pack/Ice Massage,Electric Stimulation,Hot Packs, Infrared Therapy,Ultrasound Next Visit Focus/Plan Next Note Type Treatment Note Next Visit Plan review HEP add weight gradually for shoulder ex add shoulder punch for scap wing Plan of Care Dates Plan of Care Start Date 06/21/21 Plan of Care End Date 07/22/21 Electronically Signed by: Johnathan Morgan PT 06/21/21 [id number] Please Sign and Return: I have reviewed this Plan of Care and certify that the skilled therapy services above are required to meet the patient?s needs. Physician Signature Date Printed Name and Credentials Clinical Instructor Signature Printed Name and Credentials
--- NOTE | 2021-07-01 09:35 | PT.OTN ---
Current Diagnoses Pain in right shoulder (07/01/21) Physical Therapy Treatment Note PT-OP-A Visit Information Start: 06/21/21 12:36 Freq: Status: Active Protocol: Document 07/01/21 08:11 HH (Rec: 07/01/21 09:35 [id number]) Out-Patient Physical Therapy Visit Information Visit Information Visit Type Discharge Summary Visit Start Time 09:01 Visit Stop Time 09:39 Total Visit Minutes 38 Visit Number 2/ Number of OVERAGE SHORTAGE AND DAMAGE CLERK Visits 0 PT-OP-B Current Condition Start: 06/21/21 12:36 Freq: Status: Active Protocol: Document 06/21/21 12:36 HH (Rec: 06/21/21 12:59 HH [email or web address]) Current Condition History of Current Condition Onset Date 05/14/21 Current Complaints R shoulder pain after GLF History of Current Condition Hilda is a 65yo female here for her R shoulder pain after a GLF on 05/14/21. Pt stated she lost her balance and fell backward who landed on her R scapular. Pt initially had significant pain and difficulty reaching overhead and abducting her R arm. However, her ROM has improved and only has superiorlateral shoulder pain with end range flexion and abduction. 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 She stated she has difficulty with depth perception. Prior Treatments and Tests R scap xray Bones: No fractures or dislocations. No suspicious bony lesions. Visualized ribs appear intact. The right scapula is normal. R shoulder MRI 1. Low-grade strains of the medial infraspinatus and teres minor muscles. 2. Mild supraspinatus and infraspinatus tendinosis. No significant rotator cuff tendon tear is seen. 3. Mild tendinosis of the biceps long head tendon. 4. Mild to moderate acromioclavicular joint osteoarthrosis. R shoulder X-ray IMPRESSION: 1. Intact right shoulder with mild degenerative change at the right AC joint. PT-OP-C Subjective Start: 06/21/21 12:36 Freq: Status: Active Protocol: Document 07/01/21 08:11 HH (Rec: 07/01/21 09:35 HH [id number]) OP-PT Subjective Patient Comments Patient Comments Im doing better now. My shoulder is getting stronger with no pain. Patient Reported Progress Improving PT-OP-F Manual Assessment Start: 06/21/21 12:36 Freq: Status: Active Protocol: Document 06/21/21 12:36 HH (Rec: 06/21/21 12:59 [email or web address]) Manual Assessments Soft Tissue Assessment Soft Tissue Mobility Assessment significant pain to pressure at infraspinatus> teres minor > supraspinatus PT-OP-J Posture/Palpation/Skin Start: 06/21/21 12:36 Freq: Status: Active Protocol: Document 06/21/21 12:36 HH (Rec: 06/21/21 12:59 [email or web address]) Posture Evaluation Position Standing Evaluation View Posterior Shoulder Posture (R) Rounded Scapula Posture (R) Winged PT-OP-K Range of Motion Start: 06/21/21 12:36 Freq: Status: Active Protocol: Document 06/21/21 12:36 HH (Rec: 06/21/21 12:59 [email or web address]) Shoulder Goniometric Range of Motion Shoulder Right Active Shoulder ROM WFL Yes Testing Position Standing Flexion 158 Extension 70 Abduction 164 External Rotation at 90 degrees 90 Abduction Internal Rotation 90 Comments pain with end range flexion and abduction PT-OP-L Special Tests Start: 06/21/21 12:36 Freq: Status: Active Protocol: Document 06/21/21 12:36 HH (Rec: 06/21/21 12:59 [email or web address]) Special Tests Shoulder Special Tests painful arc Test Results +ve Comments pain at end range abd/ flexion Empty Can Test Results +ve Comments weakness noted and pain noted Drop Arm Rotator Cuff Test Results -ve [place] Test Test Results -ve Aj Sonny Impingement Test Results -ve Neer Impingement Test Results -ve PT-OP-M Strength Start: 06/21/21 12:36 Freq: Status: Active Protocol: Document 06/21/21 12:36 HH (Rec: 06/21/21 12:59 [email or web address]) Shoulder Strength Shoulder Manual Muscle Testing Right Flexion 4 Good Extension 4+ Good+ Abduction (C5) 4- Good- External Rotation 4 Good Internal Rotation 4 Good Comments pain with resisted flexion and abduction PT-OP-Q Treatments Start: 06/21/21 12:36 Freq: Status: Active Protocol: Document 07/01/21 08:11 HH (Rec: 07/01/21 09:35 [id number]) Cardio Equipment Upper Body Ergometer (UBE) Duration (Minutes) 5 Seat Position 11 Height 4 Therapeutic Exercises Sidelying Exercises SL abd Side right Equipment Used 2 lbs Comments no discomfort, for HEP Standing Exercises shoulder ER/ IR Resistance level1 band Reps/Minutes 10 x2 Comments for HEP scap pinch Side bilateral Comments for HEP tennis ball release Standing Exercise Name teres minor and infraspinatus. Side right Comments for HEP, active flexion and abd Side right Resistance 1lb Reps/Minutes 10 r x 2 Manual Therapy Treatment Soft Tissue Mobilization RTC Body Location supraspinatus, teres minor and infraspinatus Mobilization Type Myofascial Release,Sustained Pressure,Trigger Point Release Intensity/Depth Moderate Body Position Sidelying Comments pt reports reduce pain after during flexion and abduction PT-OP-T Assessment and Plan Start: 06/21/21 12:36 Freq: Status: Active Protocol: Document 07/01/21 08:11 (Rec: 07/01/21 09:35 [id number]) Physical Therapy Assessment Goals HEP Impairment pt does not have HEP Short Term Goal (STG) pt will comply to HEP safely and independently to regain her strength and ROM STG Duration 4 weeks pain Impairment pt has pain with overhead and pulling movement Short Term Goal (STG) pt will regain full ROM therefore she can reach overhead for cupboard without pain. STG Duration 4 weeks quickdash Impairment pt scores 15.91 on quickdash Short Term Goal (STG) pt will be able to show improved mobility and strength to be able to open a tight jar without discomfort STG Duration 4 weeks Progress Towards Goals Progress Towards Goals Goals Met Assessment Summary Assessment pt reports she has no discomfort and 90 % recovered. Her overall shoulder strnegth = 4+/5 and no end range pain. She agreed to be DC d/t good progress. Physical Therapy Plan Frequency and Duration Frequency of Treatment Every Other Week Duration of Treatment 4 weeks Plan of Care Start Date 06/21/21 Plan of Care End Date 07/22/21 Therapeutic Interventions Therapeutic Interventions Home Exercise Program,Joint Mobilizations,Manual Therapy, Neuromuscular Re-education, Patient/Caregiver Education, Self-Care/Home Management,Soft Tissue Mobilization,Taping, Therapeutic Activities, Therapeutic Exercises Modalities Cold Pack/Ice Massage,Electric Stimulation,Hot Packs, Infrared Therapy,Ultrasound Next Visit Focus/Plan Next Note Type Treatment Note Next Visit Plan review HEP add weight gradually for shoulder ex add shoulder punch for scap wing
== END 2021-07-01 09:57 | disposition home or self-care (01) ==
LOC: PHYS 09:00
PROVIDERS: PCP Family Medicine; Referring Provider Physician Assistant; Visit Provider Physician Assistant
DX: M25.511 Pain in right shoulder (principal)
CPT/HCPCS: 97110; 97140; 97161

== ENCOUNTER → 2021-07-26 07:02 | Outpatient (CLI) | payer MEDICARE, SELFPAY | PROVIDERS: PCP Family Medicine; Visit Provider Nurse Practitioner Family | DX: R30.9 Painful micturition, unspecified (principal) | CPT/HCPCS: 87077; 87086; 87186 ==

== ENCOUNTER → 2021-10-11 10:56 | Outpatient (CLI) | payer MEDICARE, SELFPAY | PROVIDERS: PCP Family Medicine; Referring Provider Family Medicine; Visit Provider Family Medicine | DX: N39.0 Urinary tract infection, site not specified (principal) | CPT/HCPCS: 87077; 87086; 87186 ==

== ENCOUNTER → 2022-09-09 09:09 | Outpatient (CLI) | payer MEDICARE, SELFPAY ==
--- NOTE | 2022-09-09 | DI.MG.S_ITS ---
BILATERAL DIGITAL SCREENING MAMMOGRAM 3D/2D WITH CAD: 09/09/2022 CLINICAL: Routine screening. Comparison is made to exams dated: 08/04/2020 mammogram and 09/22/2018 mammogram - [facility]. There are scattered areas of fibroglandular density in both breasts (category b / 25%-50% glandular tissue). Current study was also evaluated with a Computer Aided Detection (CAD) system. No significant masses, calcifications, or other findings are seen in either breast. There has been no significant interval change. IMPRESSION: NEGATIVE There is no mammographic evidence of malignancy. A 1 year screening mammogram is recommended. Based on the Tyrer Cuzick model (a risk assessment model) the patient's lifetime risk is 4.3% and her 10 year risk is 2.5%. According to the ACR, ACS, and NCCN guidelines, an annual breast MRI exam along with mammogram is recommended if the patient's lifetime risk is 20% or greater. This exam was interpreted at Station ID: [id number]. NOTE: For mammograms, a report in lay terms will be sent to the patient. Approximately 15% of breast malignancies will not be visualized mammographically. In the management of a palpable breast mass, a negative mammogram must not discourage biopsy of a clinically suspicious lesion. Electronically Signed By: Doug pagan/cele:09/09/2022 13:28:01 letter sent: Normal Exam ACR BI-RADS Category 1: Negative [id number]
== END ==
PROVIDERS: PCP Family Medicine; Referring Provider Family Medicine; Visit Provider Family Medicine
DX: Z12.31 Encounter for screening mammogram for malignant neoplasm of breast (principal)
CPT/HCPCS: 77063; 77067

== ENCOUNTER → 2022-10-06 10:45 | Outpatient (CLI) | payer MEDICARE, SELFPAY | PROVIDERS: PCP Family Medicine; Referring Provider Internal Medicine Endocrinology, Diabetes & Metabolism; Visit Provider Internal Medicine Endocrinology, Diabetes & Metabolism | DX: M81.0 Age-related osteoporosis without current pathological fracture (principal); Z79.83 Long term (current) use of bisphosphonates | CPT/HCPCS: 77080 ==

== ENCOUNTER → 2022-12-15 07:39 | Outpatient (CLI) | payer MEDICARE, SELFPAY | PROVIDERS: PCP Family Medicine; Visit Provider Nurse Practitioner Family | DX: R30.0 Dysuria (principal); N89.8 Other specified noninflammatory disorders of vagina | CPT/HCPCS: 87077; 87086; 87186; 87210 ==

== ENCOUNTER → 2023-01-18 14:50 | Outpatient (CLI) | payer MEDICARE, SELFPAY ==
[2023-01-18 16:50] LABS: Appearance Urine UA CLEAR; Bilirubin Urine UA NEGATIVE (NEGATIVE); Color Urine UA YELLOW; Glucose Urine UA NEGATIVE (Negative); Ketones Urine UA TRACE (NEGATIVE); Leukocyte Esterase Urine UA TRACE (NEGATIVE); Nitrite Urine UA NEGATIVE (Negative); Occult Blood Urine UA NEGATIVE (Negative); Protein Urine UA NEGATIVE (Negative); Urobilinogen Urine UA 0.2 E.U./dL (0.2)
[2023-01-18 17:11] LABS: Amorphous Sediment Urine 1+; Bacteria Urine Occasional (0-1); Culture Indicated Urine Specimen Cultured; RBC Urine 0-1/HPF (0-5/HPF); Squamous Epithelial Cell Urine 0-1 /HPF (0-5/HPF); Transitional Epi Cells Urine 1-5/HPF (0-5/HPF); WBC Urine 5-10/HPF (0-5/HPF)
== END ==
PROVIDERS: PCP Family Medicine; Visit Provider Family Medicine
DX: N39.0 Urinary tract infection, site not specified (principal); R30.9 Painful micturition, unspecified
CPT/HCPCS: 81001; 87086

== ENCOUNTER → 2023-01-24 07:10 | Outpatient (CLI) | payer MEDICARE, SELFPAY ==
[2023-01-24 08:31] LABS: Add Manual Diff / Slide Review NO; Basophils Absolute Auto 0 /uL (0-100); Basophils Percent Auto 1.4 % (0-2); Eosinophils Absolute Auto 100 /uL (0-450); Eosinophils Percent Auto 3.2 % (2-4); Hematocrit 38.3 % (36-46); Hemoglobin 13.2 g/dL (12.0-16.0); Lymphocytes Absolute Auto 600 /uL (1100-4500); Mean Corpuscular HGB Conc 34.5 % (30-36); Mean Corpuscular Hemoglobin 30.3 PG (26-34); Mean Corpuscular Volume 87.8 fL (80-100); Monocytes Absolute Auto 300 /uL (0-900); Monocytes Percent Auto 12.3 % (3-14); Neutrophils Absolute Auto 1400 /uL (1500-7000); Neutrophils Percent Auto 58.1 % (50-75); Platelet Count 210 X10^3/uL (150-400); Red Blood Cell Count 4.36 X10^6/uL (4.0-5.2); Red Cell Distribution Width 12.5 % (11.6-14.8); White Blood Cell Count 2.5 X10^3/uL (4.5-11.0)
[2023-01-24 09:07] LABS: Alanine Aminotransferase 23 IU/L (<35); Albumin 4.2 g/dL (3.5-5.0); Albumin Globulin Ratio 1.8 (1.0-2.8); Alkaline Phosphatase 38 U/L (38-126); Aspartate Aminotransferase 32 IU/L (14-36); BUN Creatinine Ratio 21.4 (6-22); Bilirubin Total 0.7 mg/dL (0.2-1.3); Blood Urea Nitrogen 15 mg/dL (7-17); Calcium 8.5 mg/dL (8.4-10.2); Carbon Dioxide 30 mmol/L (22-32); Chloride 99 mmol/L (98-107); Cholesterol 174 mg/dL (140-199); Estimated Glomerular Filt Rate > 60 mL/min (>60); Globulin 2.3 g/dL (1.7-4.1); Glucose 88 mg/dL (80-110); HDL Cholesterol 88 mg/dL (40-60); HEMOLYSIS < 15 (0-50); LDL Cholesterol Calculated 78 mg/dL (<100); Potassium 4.3 mmol/L (3.4-5.1); Sodium 136 mmol/L (137-145); Total Protein 6.5 g/dL (6.3-8.2); Triglycerides 40 mg/dL (35-150)
[2023-01-24 09:12] LABS: Vitamin D 25 Hydroxy (D3) 49.5 ng/mL (30.0-100.0)
== END ==
PROVIDERS: PCP Family Medicine; Referring Provider Family Medicine; Visit Provider Family Medicine
DX: E83.52 Hypercalcemia (principal); Z79.899 Other long term (current) drug therapy; M81.0 Age-related osteoporosis without current pathological fracture
CPT/HCPCS: 36415; 80053; 80061; 82306; 85025

== ENCOUNTER → 2023-10-18 09:55 | Outpatient (CLI) | payer MEDICARE, SELFPAY ==
--- NOTE | 2023-10-18 09:56 | DI.MG.S_ITS ---
BILATERAL DIGITAL SCREENING MAMMOGRAM 3D/2D WITH CAD: 10/18/2023 CLINICAL: Routine screening. Comparison is made to exams dated: 09/09/2022 mammogram, 08/04/2020 mammogram, and 09/22/2018 mammogram - [facility]. There are scattered areas of fibroglandular density in both breasts (category b / 25%-50% glandular tissue). Current study was also evaluated with a Computer Aided Detection (CAD) system. There are benign post operative findings in the right breast. No significant masses, calcifications, or other findings are seen in either breast. There has been no significant interval change. IMPRESSION: BENIGN There is no mammographic evidence of malignancy. A 1 year screening mammogram is recommended. Based on the Tyrer Cuzick model (a risk assessment model) the patient's lifetime risk is 4.1% and her 10 year risk is 2.6%. According to the ACR, ACS, and NCCN guidelines, an annual breast MRI exam along with mammogram is recommended if the patient's lifetime risk is 20% or greater. This exam was interpreted at Station ID: [id number]. NOTE: For mammograms, a report in lay terms will be sent to the patient. Approximately 15% of breast malignancies will not be visualized mammographically. In the management of a palpable breast mass, a negative mammogram must not discourage biopsy of a clinically suspicious lesion. Electronically Signed By: Kimberlyn clemons/cele:10/18/2023 15:33:18 letter sent: Normal Exam ACR BI-RADS Category 2: Benign Finding(s) 3342F
== END ==
PROVIDERS: PCP Family Medicine; Referring Provider Family Medicine; Visit Provider Family Medicine
DX: Z12.31 Encounter for screening mammogram for malignant neoplasm of breast (principal)
CPT/HCPCS: 77063; 77067

== ENCOUNTER → 2024-02-15 12:46 | Outpatient (CLI) | payer MEDICARE, SELFPAY ==
[2024-02-15 13:44] LABS: Add Manual Diff / Slide Review NO; Basophils Absolute Auto 0 /uL (0-100); Basophils Percent Auto 1.2 % (0-2); Eosinophils Absolute Auto 100 /uL (0-450); Eosinophils Percent Auto 2.7 % (2-4); Hemoglobin 11.9 g/dL (12.0-16.0); Lymphocytes Absolute Auto 700 /uL (1100-4500); Mean Corpuscular HGB Conc 33.2 % (30-36); Mean Corpuscular Hemoglobin 30.1 PG (26-34); Mean Corpuscular Volume 90.8 fL (80-100); Monocytes Absolute Auto 300 /uL (0-900); Monocytes Percent Auto 9.2 % (3-14); Neutrophils Absolute Auto 2200 /uL (1500-7000); Neutrophils Percent Auto 66.9 % (50-75); Platelet Count 223 X10^3/uL (150-400); Red Blood Cell Count 3.96 X10^6/uL (4.0-5.2); White Blood Cell Count 3.3 X10^3/uL (4.5-11.0)
[2024-02-15 14:07] LABS: Alanine Aminotransferase 21 IU/L (<35); Albumin Globulin Ratio 1.7 (1.0-2.8); Alkaline Phosphatase 54 U/L (38-126); Aspartate Aminotransferase 32 IU/L (14-36); BUN Creatinine Ratio 19.4 (6-22); Bilirubin Total 1.1 mg/dL (0.2-1.3); Blood Urea Nitrogen 12 mg/dL (7-17); Calcium 8.4 mg/dL (8.4-10.2); Carbon Dioxide 27 mmol/L (22-32); Chloride 106 mmol/L (98-107); Estimated Glomerular Filt Rate > 60 mL/min (>60); Globulin 2.4 g/dL (1.7-4.1); Glucose 89 mg/dL (80-110); HEMOLYSIS < 15 (0-50); Potassium 4.1 mmol/L (3.4-5.1); Sodium 135 mmol/L (137-145); Total Protein 6.4 g/dL (6.3-8.2)
[2024-02-15 14:23] LABS: Vitamin D 25 Hydroxy (D3) 61.1 ng/mL (30.0-100.0)
== END ==
LOC: LAB 12:48
PROVIDERS: Podiatrist; PCP Family Medicine; Referring Provider Internal Medicine Endocrinology, Diabetes & Metabolism; Visit Provider Internal Medicine Endocrinology, Diabetes & Metabolism
DX: M81.0 Age-related osteoporosis without current pathological fracture (principal); B35.1 Tinea unguium
CPT/HCPCS: 36415; 80053; 82306; 85025

== ENCOUNTER → 2024-04-09 11:19 | Outpatient (CLI) | payer MEDICARE, SELFPAY ==
[2024-04-09 12:25] LABS: Add Manual Diff / Slide Review NO; Basophils Absolute Auto 0 /uL (0-100); Basophils Percent Auto 1.1 % (0-2); Eosinophils Absolute Auto 100 /uL (0-450); Eosinophils Percent Auto 2.7 % (2-4); Hematocrit 38.6 % (36-46); Hemoglobin 12.9 g/dL (12.0-16.0); Lymphocytes Absolute Auto 400 /uL (1100-4500); Mean Corpuscular HGB Conc 33.5 % (30-36); Mean Corpuscular Hemoglobin 30.2 PG (26-34); Mean Corpuscular Volume 90.2 fL (80-100); Monocytes Absolute Auto 400 /uL (0-900); Monocytes Percent Auto 10.3 % (3-14); Neutrophils Absolute Auto 2700 /uL (1500-7000); Neutrophils Percent Auto 73.9 % (50-75); Platelet Count 223 X10^3/uL (150-400); Red Blood Cell Count 4.28 X10^6/uL (4.0-5.2); Red Cell Distribution Width 13.2 % (11.6-14.8); White Blood Cell Count 3.7 X10^3/uL (4.5-11.0)
== END ==
PROVIDERS: PCP Family Medicine; Referring Provider Podiatrist; Visit Provider Podiatrist
DX: B35.1 Tinea unguium (principal)
CPT/HCPCS: 36415; 85025

== ENCOUNTER → 2024-09-20 10:57 | Outpatient (CLI) | payer MEDICARE, SELFPAY ==
[2024-09-20 12:40] LABS: Vitamin D 25 Hydroxy (D3) 59.2 ng/mL (30.0-100.0)
== END ==
LOC: LAB 10:58
PROVIDERS: PCP Family Medicine; Referring Provider Internal Medicine Endocrinology, Diabetes & Metabolism; Visit Provider Internal Medicine Endocrinology, Diabetes & Metabolism
DX: M81.0 Age-related osteoporosis without current pathological fracture (principal)
CPT/HCPCS: 36415; 82306

== ENCOUNTER → 2024-10-25 15:09 | Outpatient (CLI) | payer MEDICARE, SELFPAY ==
--- NOTE | 2024-10-25 15:09 | DI.RAD.S_ITS ---
PROCEDURE: XR DEXA AXIAL SKELETON INDICATIONS: Age-related osteoporosis without current pathologi COMPARISON: [facility], , XR DEXA AXIAL SKELETON, 10/06/2022, 11:01. FINDINGS: Lumbar Spine: Bone mineral density 0.953 g/cm2, T score -0.9, compared to -1.0. Left Hip: Bone mineral density 0.68 g/cm2, T score -2.1, compared to -2.4. Left Femoral Neck: Bone mineral density 0.545 g/cm2, T score -2.7, compared to -2.9. Right Hip: Bone mineral density 0.732 g/cm2, T score -1.7, compared to -1.8. Right Femoral Neck: Bone mineral density 0.584 g/cm2, T score -2.4, compared to -2.2. Fracture Risk Calculation (when applicable): 10-year fracture risk of a major osteoporotic fracture 14 percent and of a hip fracture 4.2 percent. (T score greater or equal to -1.0 to: NORMAL) (T score from -1.1 to -2.4: OSTEOPENIA) (T score less than or equal to -2.5: OSTEOPOROSIS) IMPRESSION: Osteoporosis in the femoral neck minimally improved. Moderate to severe osteopenia in the hips bilaterally with most notable progression in the right femoral neck. Follow-up guidelines as follows: Osteoporosis: Consider a repeat DEXA and Vertebral Fracture Assessment (VFA) exam in 2 years or sooner if medically necessary, to reassess this patient's status. Osteopenia: Consider a repeat DEXA in 2-3 years to reassess this patient's status, or if there is a new clinical indication. Normal: Consider a repeat DEXA in 5 years or sooner, or if there is a new clinical indication. All treatment decisions require clinical judgment and consideration of individual patient factors, including patient preferences, comorbidities, previous drug use, risk factors not captured in the FRAX model (e.g., frailty, falls, vitamin D deficiency, increased bone turnover, interval significant decline in bone density ) and possible under- or over-estimation of fracture risk by FRAX. In addition, the NOF Guide recommends that FDA-approved medical therapies be considered in postmenopausal women and men age >= 50 years with a: * Hip or vertebral (clinical or morphometric) fracture * T-score of <=-2.5 at the spine or hip * Ten-year fracture probability by FRAX of >= 3% for hip fracture or >=20% for major osteoporotic fracture. People with diagnosed cases of osteoporosis or at high risk for fracture should have regular bone mineral density tests. For patients eligible for Medicare, routine testing is allowed once every 2 years. The testing frequency can be increased to one year for patients who have rapidly progressing disease, those who are receiving or discontinuing medical therapy to restore bone mass, or have additional risk factors. Dictated by: Shanika Pandya M.D. on 10/27/2024 at 14:38 Approved by: Shanika Pandya M.D. on 10/27/2024 at 14:40
== END ==
PROVIDERS: PCP Family Medicine; Referring Provider Internal Medicine Endocrinology, Diabetes & Metabolism; Visit Provider Internal Medicine Endocrinology, Diabetes & Metabolism
DX: M81.0 Age-related osteoporosis without current pathological fracture (principal)
CPT/HCPCS: 77080

== ENCOUNTER → 2024-11-28 | Outpatient (CLI) | payer MEDICARE, SELFPAY ==
--- NOTE | 2024-11-28 09:56 | DI.MG.S_ITS ---
BILATERAL DIGITAL SCREENING MAMMOGRAM 3D/2D WITH CAD: 11/28/2024 CLINICAL: Routine screening. Comparison is made to exams dated: 10/18/2023 mammogram, 09/09/2022 mammogram, and 08/04/2020 mammogram - [facility]. There are scattered areas of fibroglandular density (category b / 25%-50% glandular tissue). Current study was also evaluated with a Computer Aided Detection (CAD) system. There are benign post operative findings in the right breast. No significant masses, calcifications, or other findings are seen in either breast. There has been no significant interval change. IMPRESSION: BENIGN There is no mammographic evidence of malignancy. A 1 year screening mammogram is recommended. Based on the Tyrer Cuzick model (a risk assessment model) the patient's lifetime risk is 3.9% and her 10 year risk is 2.6%. According to the ACR, ACS, and NCCN guidelines, an annual breast MRI exam along with mammogram is recommended if the patient's lifetime risk is 20% or greater. This exam was interpreted at Station ID: [id number]. NOTE: For mammograms, a report in lay terms will be sent to the patient. Approximately 15% of breast malignancies will not be visualized mammographically. In the management of a palpable breast mass, a negative mammogram must not discourage biopsy of a clinically suspicious lesion. Electronically Signed By: Rigo forbes/cele:11/28/2024 15:55:49 letter sent: Normal Exam ACR BI-RADS Category 2: Benign
== END ==
PROVIDERS: PCP Family Medicine; Referring Provider Family Medicine; Visit Provider Family Medicine
DX: Z12.31 Encounter for screening mammogram for malignant neoplasm of breast (principal)
CPT/HCPCS: 77063; 77067

== ENCOUNTER → 2025-05-26 08:56 | Outpatient (CLI) | payer MEDICARE, SELFPAY ==
[2025-05-26 09:30] LABS: Add Manual Diff / Slide Review NO; Hematocrit 39.8 % (36-46); Hemoglobin 13.3 g/dL (12.0-16.0); Lymphocytes Absolute Auto 500 /uL (1100-4500); Mean Corpuscular HGB Conc 33.4 % (30-36); Mean Corpuscular Hemoglobin 29.9 PG (26-34); Mean Corpuscular Volume 89.5 fL (80-100); Platelet Count 223 X10^3/uL (150-400)
[2025-05-26 09:47] LABS: Iron 78 ug/dL (37-170)
[2025-05-26 10:19] LABS: Thyroid Stimulating Hormone 0.068 uIU/mL (0.47-4.68)
[2025-05-26 10:55] LABS: Folate 19.3 ng/mL (2.76-20.0); Vitamin B12 327 pg/mL (239-931)
[2025-05-26 14:47] LABS: Free T3, Triiodothyronine Free 3.06 pg/mL (2.77-5.27); Free T4, Direct Thyroxine 1.19 ng/dL (0.78-2.19)
== END ==
PROVIDERS: PCP Family Medicine; Referring Provider Family Medicine; Visit Provider Family Medicine
DX: Z13.9 Encounter for screening, unspecified (principal); R79.89 Other specified abnormal findings of blood chemistry
CPT/HCPCS: 36415; 82607; 82746; 83540; 84439; 84443; 84481; 85025

== ENCOUNTER → 2025-07-11 07:51 | Outpatient (CLI) | payer MEDICARE, SELFPAY | PROVIDERS: PCP Family Medicine; Visit Provider Nurse Practitioner Family | DX: R30.0 Dysuria (principal) | CPT/HCPCS: 87077; 87086; 87186 ==

== ENCOUNTER → 2025-10-14 11:29 | Outpatient (CLI) | payer MEDICARE, SELFPAY ==
[2025-10-14 13:01] LABS: Blood Urea Nitrogen 22 mg/dL (7-17); Calcium 8.6 mg/dL (8.4-10.2); Carbon Dioxide 25 mmol/L (22-32); Chloride 103 mmol/L (98-107); Estimated Glomerular Filt Rate > 60 mL/min (>60); Glucose 84 mg/dL (70-99); HEMOLYSIS < 15 (0-50); Magnesium 1.9 mg/dL (1.6-2.3); Potassium 4.3 mmol/L (3.4-5.1); Sodium 136 mmol/L (137-145)
[2025-10-14 14:44] LABS: Vitamin D 25 Hydroxy (D3) 64.3 ng/mL (30.0-100.0)
== END ==
PROVIDERS: PCP Family Medicine; Referring Provider Internal Medicine Endocrinology, Diabetes & Metabolism; Visit Provider Internal Medicine Endocrinology, Diabetes & Metabolism
DX: M81.0 Age-related osteoporosis without current pathological fracture (principal)
CPT/HCPCS: 36415; 80048; 82306; 83735